=== PATIENT | female | born 1930 | race African-American/Black ===

== ENCOUNTER → 2017-01-15 | Outpatient (CLI) | payer MEDICARE, MEDICAID ==
[~2017-01-15] MED LIST: ACET1TAB14 GT; ALBU18HF2 IH; ASPI-1159 PO; ATOR10TA PO; AZEL137S7 BOTHNSTRLS; AZEL30SP2 NS; CILO100T PO; CLOT10TR MM; COLC0.6T66 PO; DEXL60CA3 PO; FESO4TAB PO; IPRA4AER IH; LANS30CA55 PO; LEVO125T8 PO; MESA800T PO; MONT10TA21 PO; NITR0.4T SL; POTA10TA69 PO; PRED5DRO7 OP; PREG150C PO; RISP0.5T19 PO; [UNRECOGNIZED DRUG - CODE] PO; [UNRECOGNIZED DRUG - CODE] PO
== END | disposition home or self-care (01) ==
LOC: RAD 10:06
PROVIDERS: ATTEND Podiatrist Foot & Ankle Surgery
DX: M25.571 Pain in right ankle and joints of right foot (principal); M81.8 Other osteoporosis without current pathological fracture
CPT/HCPCS: 73610; 73630

== ENCOUNTER 2020-11-14 21:48 | Emergency (ER) | payer MEDICARE, MEDICAID ==
[~2020-11-14] VITALS: Ht 157.5 cm; Wt 64.0 kg
[~2020-11-14 21:48] MED LIST changes: -ASPI-1159 PO; +ASPI-1497 PO; -ATOR10TA PO; +POTA10TA11 PO; -POTA10TA69 PO; -RISP0.5T19 PO; +RISP0.5T65 PO; +SKEL800 PO; -[UNRECOGNIZED DRUG - CODE] PO
[2020-11-14] MEDS ORDERED: TRAMADOL HCL/ACETAMINOPHEN 37.5/325MG TABLET PO ONE (22:45)
[2020-11-14] MEDS ORDERED: FAMOTIDINE 20MG TABLET PO ONE (23:30)
[2020-11-15 00:58] VITALS: BP 131/75
== END 2020-11-15 01:05 | disposition home or self-care (01) ==
LOC: ER 21:48
DX: S92.515A Nondisplaced fracture of proximal phalanx of left lesser toe(s), initial encounter for closed fracture (principal); E11.9 Type 2 diabetes mellitus without complications; I10 Essential (primary) hypertension; I48.91 Unspecified atrial fibrillation; Z93.3 Colostomy status; Z79.01 Long term (current) use of anticoagulants; Z88.2 Allergy status to sulfonamides; Z91.018 Allergy to other foods; Z79.82 Long term (current) use of aspirin; Z88.0 Allergy status to penicillin; W01.0XXA Fall on same level from slipping, tripping and stumbling without subsequent striking against object, initial encounter; Y93.89 Activity, other specified; Y92.018 Other place in single-family (private) house as the place of occurrence of the external cause
CPT/HCPCS: 73630; 99283